=== PATIENT | male | born 1965 | race Caucasian/White ===

== ENCOUNTER 2024-07-15 22:54 | Emergency (ER) | payer SELFPAY ==
[~2024-07-15] VITALS: Ht 175.3 cm; Wt 79.0 kg
[2024-07-15 23:02] VITALS: O2SAT 98
[2024-07-16] VITALS: BP 114/70; PULSE 66; RESP 13; TEMP 98.5
[2024-07-16 01:56] LABS: BASOPHILS % 0.4 % (0.0-2.0); CARBON DIOXIDE 27 mEq/L (21-32); CHLORIDE 108 mEq/L (98-107); EOSINOPHILS % 0.1 % (0.0-5.0); HEMATOCRIT. 41.3 % (42.0-52.0); HEMOGLOBIN. 13.5 g/dL (14.0-18.0); LYMPHOCYTES % 7.3 % (20.0-50.0); MEAN CORPUSCULAR HEMOGLOBIN 28.2 pg (28.0-32.0); MEAN CORPUSCULAR HGB CONC 32.7 g/dL (31.0-37.0); MEAN CORPUSCULAR VOLUME 86.2 fL (80.0-94.0); MONOCYTES % 3.9 % (2.0-8.0); NEUTROPHILS % 88.3 % (40.0-76.0); PLATELET 151 x1000/uL (130-400); POTASSIUM 3.5 mEq/L (3.5-5.1); RED BLOOD CELL COUNT 4.79 mill/uL (4.7-6.1); RED CELL DISTRIBUTION WIDTH 13.8 % (11.6-14.6); SODIUM 141 mEq/L (136-145); WHITE BLOOD COUNT 11.6 x1000/uL (4.5-11.0)
[2024-07-16 01:57] LABS: CALCIUM 9.2 mg/dL (8.7-10.4)
[2024-07-16 02:01] LABS: CREATININE 1.2 mg/dL (0.6-1.3)
[2024-07-16 02:02] LABS: GLUCOSE 111 mg/dL (70-105); UREA NITROGEN BLOOD 14 mg/dL (9-23)
[2024-07-16 02:03] LABS: TROPONIN I HIGH SENSITIVITY < 4 ng/L (3.0-53)
[2024-07-16 02:04] LABS: ALANINE AMINOTRANSFERASE 17 IU/L (10-49); ALBUMIN 4.4 g/dL (3.2-4.8); ASPARTATE AMINOTRANSFERASE 21 IU/L (<34); BILIRUBIN DIRECT 0.2 mg/dL (<=3.0); BILIRUBIN TOTAL 0.5 mg/dL (0.1-1.0); PROTEIN TOTAL 6.4 g/dL (6.0-8.3)
== END 2024-07-16 03:15 | disposition home or self-care (01) ==
LOC: ER 23:25
DX: R55 Syncope and collapse (principal); R53.1 Weakness
CPT/HCPCS: 36415; 80048; 80076; 84484; 85025; 93005; 99284